=== PATIENT | female | born 1960 | race Caucasian/White ===

== ENCOUNTER 2017-03-20 23:12 | Inpatient (IN) | payer BC ==
--- NOTE | ~2017-03-20 | HP ---
History And Physical [address] [place]. [address] NAME: SAVANNAH GOMEZ : 60 STATUS : ADM IN PAT#: [id number] AGE: 56 ADM/REG DATE : 03/21/17 MR#: [id number] REPORT SERV DATE: 03/21/17 DICTATED BY: RU SULLIVAN DATE: 03/21/17 REPORT STATUS : Draft TRANSCRIBED BY: MODL DATE: 03/21/17 DATE OF ADMISSION: 03/21/2017 CHIEF COMPLAINT: Left knee pain and swelling. HISTORY: This is a 56-year-old female. Said she was moving, hit her knee against a box, got a foreign body in there about 48 to 72 hours ago. She has had progressive pain and swelling in the anterior knee and was admitted for evaluation and treatment of the same. She denies pain, injury, or evidence of illness elsewhere. ALLERGIES: CELEBREX. MEDICATIONS: See chart. PAST MEDICAL HISTORY: Denies. PAST SURGICAL HISTORY: Denies. SOCIAL HISTORY: She smokes, unclear how much, for how long. She reports being homeless. 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 FAMILY HISTORY: No known anesthetic complications. REVIEW OF SYSTEMS: As above. PHYSICAL EXAMINATION: GENERAL: She is alert and oriented x3, in no apparent distress. HEENT: Atraumatic, normocephalic. NECK: Supple. CHEST: Symmetric. LUNGS: Per Medicine evaluation. CV: Regular. ABDOMEN: Soft, no mass. EXTREMITIES: Both upper extremities, right lower extremity without acute trauma. Left knee with obvious pain and swelling over the anterior knee bursa. Skin is intact with severe erythema and severe pain with any range of motion. X-RAY: With a linear metallic-appearing density in the anterior midline of her knee. ASSESSMENT: Left knee foreign body, cellulitis, abscess, probable septic bursitis. PLAN: Left knee I and D, probable bursectomy and foreign body removal. Risks and benefits etc. explained. The patient wishes to proceed. History And Physical [address] [place]. [address] NAME: SAVANNAH GOMEZ : 60 STATUS : ADM IN PAT#: [id number] AGE: 56 ADM/REG DATE : 03/21/17 MR#: [id number] REPORT SERV DATE: 03/21/17 DICTATED BY: RU SULLIVAN DATE: 03/21/17 REPORT STATUS : Draft TRANSCRIBED BY: TRINA DATE: 03/21/17 WTB/TRINA Rodrigue Sullivan M.D. / [id number] CC: Jose Valdez M.D.
--- NOTE | ~2017-03-20 | OP ---
Record Of Operation [facility] [address] [place]. [address] NAME: SAVANNAH GOMEZ : 60 STATUS : ADM IN [facility]#: [id number] AGE: 56 ADM/REG DATE : 03/21/17 MR#: [id number] REPORT SERV DATE: 03/22/17 DICTATED BY: RU CANDELARIA DATE: 03/21/17 REPORT STATUS : Draft TRANSCRIBED BY: MODL DATE: 03/21/17 DATE OF PROCEDURE: 03/21/2017 PREOPERATIVE DIAGNOSIS: Left knee septic prepatellar bursa with foreign body. POSTOPERATIVE DIAGNOSIS: Left knee septic prepatellar bursa with foreign body (foreign body was a hypodermic needle). PROCEDURE: Left knee I and D septic bursa, removed hypodermic needle foreign body. SURGEON: Rodrigue Candelaria M.D. PATCH PRESS OPERATOR: See chart. DESCRIPTION OF PROCEDURE: The patient was taken to the operating room and placed supine on the table in normal fashion without incident. General anesthetic was induced per the anesthesiologist. The patient was carefully positioned, padded, prepped, and draped in normal sterile fashion. Sharp dissection was made through straight midline longitudinal incision and electrocautery to maintain hemostasis. Gross purulence was encountered and flowed out of the knee. We palpated and probed with looked for the foreign body, I could not find it and then discovered that it had flowed out with the pus on to the table and it was actually a hypodermic needle. The wound was copiously irrigated with pulsatile lavage, closed loosely over drain. Wound dressed sterilely. The patient awakened and taken to the postanesthesia care unit without incident. COMPLICATIONS: None. SPECIMENS: Cultures. ESTIMATED BLOOD LOSS: About 30 mL. WTB/MODL Rodrigue Candelaria M.D. / [id number] CC: Jose Valdez M.D.
--- NOTE | ~2017-03-20 | DS ---
Discharge Summary [facility] [address] [place]. [address] NAME: SAVANNAH GOMEZ : 60 STATUS : DIS IN PAT#: [id number] AGE: 56 ADM/REG DATE : 03/21/17 MR#: [id number] REPORT SERV DATE: 04/01/17 DICTATED BY: RU CANDELARIA DATE: 03/31/17 REPORT STATUS : Draft TRANSCRIBED BY: TRINA DATE: 03/31/17 Data Collection from hospitalization DISCHARGE DIAGNOSES: 1. Left knee septic prepatellar bursa with foreign body, foreign body with hypodermic needle. 2. Chronic obstructive pulmonary disease. 3. History of psychiatric disorder, she had mentioned bipolar disorder. CONSULTATIONS: Justin Fajardo M.D. PROCEDURES PERFORMED: Left knee I and D septic bursa, removed hypodermic needle foreign body on 03/21/2017. PATHOLOGY: Reports needle foreign body in left knee, see gross description. MEDICATIONS: Multivitamin one daily, Motrin IV 600 to 800 mg daily as needed, Tylenol 1000 to 1500 mg twice daily as needed, Sheila Aspirin 325 mg daily as needed, and Duricef 500 mg every 12 hours x9 days. CONDITION AT DISCHARGE: Upon discharge, she did appear to be doing well and had no complaints. DISPOSITION: She was discharged home to continue a regular diet with activity as discussed. She was to follow up with me in the office on 04/08/2017. She was also to [facility] [address] [place] [address] as directed. HOSPITAL COURSE: This 56-year-old female said she was moving, hit her knee against a box, got a foreign body in there about 48 to 72 hours prior to admission. She has had progressive pain and swelling in the anterior knee and was admitted for evaluation and treatment of the same. She denied any pain or injury or evidence of illness elsewhere. She was admitted for further evaluation. Upon admission to the hospital, she had been placed on an n.p.o. diet. She was begun on IV fluids with normal saline at 125 mL/hour. She had been placed on vancomycin 1 g IV every 12 hours, morphine 2 to 4 mg IV every two hours as needed, and Zofran 4 mg IV every four hours as needed for nausea. Following admission, she had been taken to the operating room where she did undergo the above procedure. She tolerated this well and was transferred to the recovery room. Postoperatively, she was seen by the Pharmacy for pharmacy consult in regard to her antibiotics and her antibiotics were adjusted. On postop day #1, she had been evaluated by Physical Therapy. She was afebrile and her vital signs were stable. She did appear to be doing well postoperatively. Her WBCs were at 10.9, hemoglobin 10.8, and hematocrit 33.2. Her blood culture revealed no growth at one day. Left knee culture had revealed occasional gram-positive cocci and rare gram- positive bacilli and the culture was still in progress. On postop day #2, she continued to do well and had no new complaints. She did state that she lives at [facility]. Her WBCs were down to 6.2, hemoglobin 11.6, and hematocrit 35.4. INR 1.2. She had been evaluated by Dr. Justin Fajardo in regard to her knee infection with his impression being that she had left knee staphylococcal septic prepatellar bursitis and she did state that she did not know the origin of the needle that was found in her knee and that it was maybe related Discharge Summary [address] [address] NAME: SAVANNAH GOMEZ : 60 STATUS : DIS IN PAT#: [id number] AGE: 56 ADM/REG DATE : 03/21/17 MR#: [id number] REPORT SERV DATE: 04/01/17 DICTATED BY: RU CANDELARIA DATE: 03/31/17 REPORT STATUS : Draft TRANSCRIBED BY: MODL DATE: 03/31/17 [facility]. She did state that she had a tetanus shot three years ago. She was continued on vancomycin. Dr. Fajardo also recommended screening for HIV and viral hepatitis since we did not know if this needle was used, and if she tested negative, she would need to follow up screening for both in about three months where she became symptomatic. He did also state that she needed to resume treatment for her bipolar disorder and maybe other psychiatric illness. He did also recommend vaccinations beginning with Prevnar and she did agree with this. He did also state that she would need a Pneumovax in about a year and this had also been discussed with the patient. On 03/24/2017, she continued to do well and she did state that she had been up walking on her own. Her temperature had been up to 99.1 and her vital signs had remained stable. She was continued on supportive care and had no new complaints noted. Her final operative culture had revealed a growth of MSSA and Dr. Fajardo recommended she be discharged on cefadroxil 1 g every 12 hours, then to follow up in the [facility]. She did remain in stable condition, and as she continued to do well, she was then discharged with the above instructions. Information collected by: Stephen Lisa. I submit the above information as my discharge summary. FARHANA/MODL Rodrigue Candelaria M.D. / [id number] CC: Geovanna Oneal M.D.
--- NOTE | ~2017-03-20 | CN ---
Consultation Report [facility] [address] [place]. [address] NAME: SAVANNAH GOMEZ : 60 STATUS : ADM IN PAT#: [id number] AGE: 56 ADM/REG DATE : 03/21/17 MR#: [id number] REPORT SERV DATE: 03/23/17 DICTATED BY: JUSTIN FONTENOT DATE: 03/23/17 REPORT STATUS : Draft TRANSCRIBED BY: MODMoreno DATE: 03/23/17 INFECTIOUS DISEASE CONSULTATION DATE OF CONSULTATION: REASON FOR CONSULT: Knee infection. HISTORY OF PRESENT ILLNESS: A 56-year-old homeless lady with a history of psychiatric illness (bipolar disorder and maybe others) who presented to the hospital with left swollen knee. This happened about two days prior to the admission. She thinks that she hit her knee with a box that she picked up in a homeless encampment. She does not know if she had any fever. In the ER, they described redness of the anterior left knee. She was started on vancomycin. She was admitted and Dr. Sullivan did an I and D and describes gross purulence in the prepatellar bursa. He found a needle or fragments of a needle. She got Ancef and vancomycin at the surgery time, then continued with vancomycin alone. The operative culture now is growing staphylococci species. The Gram stain had gram-positive cocci and gram- positive rods. ID consult requested today. She has been afebrile. She is able to walk. In fact, she states she walked for an hour yesterday. LABORATORY WORK: Creatinine 0.7. WBC 6 and hemoglobin 11. PAST MEDICAL HISTORY: Psychiatric disorder for which she used to go to [facility], but she has not been there in a while. She mentioned bipolar disorder. She has a lot of scars over her arms from scratching and picking on her skin. 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 SOCIAL HISTORY: She is homeless. She is on disability, so she has access to medical care. She has been in the room with a male who states that they do not "use needles." ALLERGIES: JUST MENTIONED THAT THE CELEBREX CAUSED HER HAIR TO FALL. MEDICATIONS: On her admission according to the chart, just p.r.n. aspirin and ibuprofen, and takes multivitamins. PHYSICAL EXAMINATION: GENERAL: She is alert, awake, and talkative. She has poor dentition. LUNGS: Clear to auscultation. HEART: Regular rhythm. 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 Left knee with some swelling, has a surgical dressing. Right knee without signs of excoriations or trauma to the prepatellar area. Feet without open wounds. Left hip without erythema. Consultation Report [address] [place]. [address] NAME: SAVANNAH GOMEZ : 60 STATUS : ADM IN PAT#: [id number] AGE: 56 ADM/REG DATE : 03/21/17 MR#: [id number] REPORT SERV DATE: 03/23/17 DICTATED BY: JUSTIN FONTENOT DATE: 03/23/17 REPORT STATUS : Draft TRANSCRIBED BY: TRINA DATE: 03/23/17 ASSESSMENT AND PLAN: 1. Left knee staphylococcal septic prepatellar bursitis, status post surgical debridement two days ago. The needle was found in the pocket at the surgery time. She does not know the origin of this needle. It was maybe related to this homeless encampment. She had a tetanus shot three years ago. Blood cultures are negative. Continue vancomycin. Pending abscess culture. I recommended screening for HIV and viral hepatitis since we do not know if this needle was used. If the tests are negative, she would need to follow up screening for both in about three months or if symptomatic. 2. Bipolar disorder and maybe other psychiatric illness. She needs to resume treatment. 3. I recommended vaccinations starting with Prevnar. She agreed. She will need Pneumovax in about a year. I discussed with the patient. She had the opportunity to ask questions. [place]/TRINA Justin Fontenot M.D. / [id number] CC: Rodrigue Sullivan M.D. NO PCP
[2017-03-21 00:34] LABS: BASOPHILS 0.3 %; BASOPHILS ABSOLUTE 0.03 10/3/uL (0.0-0.16); EOSINOPHILS 1.5 %; EOSINOPHILS ABSOLUTE 0.16 10/3/uL (0.0-0.53); HEMATOCRIT 38.4 % (36.0-48.0); HEMOGLOBIN 13.1 g/dL (12.0-16.0); IMMATURE GRANULOCYTES 0.3 %; IMMATURE GRANULOCYTES ABSOLUTE 0.03 10/3/uL (0.0-0.11); LYMPHOCYTES 27.7 %; LYMPHOCYTES ABSOLUTE 3.01 10/3/uL (0.67-4.30); MEAN CORPUS HGB CONC 34.1 g/dL (32.0-36.0); MEAN CORPUSCULAR HEMOGLOB 32.3 pg (26.0-34.0); MEAN CORPUSCULAR VOLUME 94.6 fL (80-100); MEAN PLATELET VOLUME 9.6 fL (9.2-13.0); MONOCYTES 5.4 %; MONOCYTES ABSOLUTE 0.59 10/3/uL (0.21-1.20); NEUTROPHILS 64.8 %; NEUTROPHILS ABSOLUTE 7.04 10/3/uL (2.02-8.40); PLATELET COUNT 247 10/3/uL (150-400); RBC DISTRIBUTION WIDTH 12.2 % (12.0-16.0); RED CELL COUNT 4.06 10/6/uL (4.0-5.6)
[2017-03-21 00:35] LABS: ER CBC TAT 0 Hrs 05 Mins; MANUAL DIFF NO %; WHITE BLOOD CELLS 10.9 10/3/uL (4.5-10.5)
[2017-03-21 00:47] LABS: BUN (BLOOD UREA NITROGEN) 21 MG/DL (6-23); CALCIUM, SERUM 8.9 MG/DL (8.5-10.4); CHLORIDE, SERUM 103 MMOL/L (96-112); CO2 (CARBON DIOXIDE) 30 MMOL/L (24-34); CREATININE 0.91 MG/DL (0.55-1.02); GFR AFRICAN AMERICAN 82 ML/MIN (>=60); GFR NON AFRICAN AMERICAN 71 ML/MIN (>=60); GLUCOSE, SERUM 104 MG/DL (60-99); POTASSIUM, SERUM 3.8 MMOL/L (3.5-5.3); SODIUM, SERUM 140 MMOL/L (135-148)
[2017-03-21] MEDS ORDERED: UNKNOWN ABX PO (01:41)
[2017-03-21] MEDS ORDERED: MOTRIN IB200 MG PO (01:42)
[2017-03-21] MEDS ORDERED: MULTIVIT/MIN PO (01:43)
[2017-03-21] MEDS ORDERED: ACET500CAP PO (01:43)
[2017-03-21] MEDS ORDERED: ASABAYER PO (01:43)
[2017-03-21 23:00] LABS: INTERNATIONAL NORMAL RATI 1.2 UNITS (-); PROTIME (NOT ORD) 15.3 SEC (12.0-14.5)
[2017-03-22 07:10] LABS: HEMATOCRIT 33.2 % (36.0-48.0); HEMOGLOBIN 10.8 g/dL (12.0-16.0)
[2017-03-22 07:18] LABS: BUN (BLOOD UREA NITROGEN) 19 MG/DL (6-23); CALCIUM, SERUM 8.3 MG/DL (8.5-10.4); CHLORIDE, SERUM 107 MMOL/L (96-112); CO2 (CARBON DIOXIDE) 26 MMOL/L (24-34); CREATININE 0.84 MG/DL (0.55-1.02); GFR AFRICAN AMERICAN 90 ML/MIN (>=60); GFR NON AFRICAN AMERICAN 78 ML/MIN (>=60); GLUCOSE, SERUM 157 MG/DL (60-99); POTASSIUM, SERUM 4.6 MMOL/L (3.5-5.3); SODIUM, SERUM 140 MMOL/L (135-148)
[2017-03-22 07:23] LABS: INTERNATIONAL NORMAL RATI 1.3 UNITS (-); PROTIME (NOT ORD) 16.3 SEC (12.0-14.5)
[2017-03-23 06:06] LABS: BASOPHILS 0.5 %; BASOPHILS ABSOLUTE 0.03 10/3/uL (0.0-0.16); EOSINOPHILS 2.3 %; EOSINOPHILS ABSOLUTE 0.14 10/3/uL (0.0-0.53); HEMATOCRIT 35.4 % (36.0-48.0); HEMOGLOBIN 11.6 g/dL (12.0-16.0); IMMATURE GRANULOCYTES 0.2 %; IMMATURE GRANULOCYTES ABSOLUTE 0.01 10/3/uL (0.0-0.11); LYMPHOCYTES ABSOLUTE 2.22 10/3/uL (0.67-4.30); MEAN CORPUS HGB CONC 32.8 g/dL (32.0-36.0); MEAN CORPUSCULAR VOLUME 94.7 fL (80-100); MEAN PLATELET VOLUME 9.6 fL (9.2-13.0); MONOCYTES 7.8 %; MONOCYTES ABSOLUTE 0.48 10/3/uL (0.21-1.20); NEUTROPHILS 53.2 %; NEUTROPHILS ABSOLUTE 3.29 10/3/uL (2.02-8.40); PLATELET COUNT 267 10/3/uL (150-400); RBC DISTRIBUTION WIDTH 12.4 % (12.0-16.0); RED CELL COUNT 3.74 10/6/uL (4.0-5.6)
[2017-03-23 06:08] LABS: MANUAL DIFF NO %; WHITE BLOOD CELLS 6.2 10/3/uL (4.5-10.5)
[2017-03-23 06:12] LABS: INTERNATIONAL NORMAL RATI 1.2 UNITS (-); PROTIME (NOT ORD) 14.7 SEC (12.0-14.5)
[2017-03-23 06:18] LABS: BUN (BLOOD UREA NITROGEN) 19 MG/DL (6-23); CALCIUM, SERUM 8.1 MG/DL (8.5-10.4); CHLORIDE, SERUM 111 MMOL/L (96-112); CO2 (CARBON DIOXIDE) 27 MMOL/L (24-34); CREATININE 0.79 MG/DL (0.55-1.02); GFR AFRICAN AMERICAN 97 ML/MIN (>=60); GFR NON AFRICAN AMERICAN 84 ML/MIN (>=60); POTASSIUM, SERUM 4.3 MMOL/L (3.5-5.3); SODIUM, SERUM 144 MMOL/L (135-148)
[2017-03-23 06:21] LABS: GLUCOSE, SERUM 107 MG/DL (60-99)
[2017-03-23 15:41] LABS: ALBUMIN 3.1 G/DL (3.5-5.0); ALKALINE PHOSPHATASE 90 U/L (45-117); SGPT(ALT) 25 U/L (5-65); TOTAL BILIRUBIN 0.2 MG/DL (0-1.2)
[2017-03-23 15:50] LABS: DIRECT BILIRUBIN < 0.1 MG/DL (0.0-0.4); INDIRECT BILIRUBIN(NOT ORDER) 0.1 MG/DL (0.1-0.9); SGOT(AST) 34 U/L (5-40)
[2017-03-24 07:52] LABS: HEMATOCRIT 36.8 % (36.0-48.0); HEMOGLOBIN 12.4 g/dL (12.0-16.0); MEAN CORPUS HGB CONC 33.7 g/dL (32.0-36.0); MEAN CORPUSCULAR HEMOGLOB 31.9 pg (26.0-34.0); MEAN CORPUSCULAR VOLUME 94.6 fL (80-100); MEAN PLATELET VOLUME 9.6 fL (9.2-13.0); PLATELET COUNT 327 10/3/uL (150-400); RBC DISTRIBUTION WIDTH 12.3 % (12.0-16.0); RED CELL COUNT 3.89 10/6/uL (4.0-5.6); WHITE BLOOD CELLS 5.4 10/3/uL (4.5-10.5)
[2017-03-24 07:56] LABS: MANUAL DIFF YES %
[2017-03-24 07:59] LABS: INTERNATIONAL NORMAL RATI 1.1 UNITS (-); PROTIME (NOT ORD) 13.9 SEC (12.0-14.5)
[2017-03-24 08:09] LABS: BAND NEUTROPHILS 5 %; EOSINOPHILS 4 %; EOSINOPHILS ABSOLUTE (CALC) 0.22 10/3/uL (0.0-0.53); LYMPHOCYTES 45 %; LYMPHOCYTES ABSOLUTE (CALC) 2.43 10/3/uL (0.67-4.30); MONOCYTES 9 %; MONOCYTES ABSOLUTE (CALC) 0.49 10/3/uL (0.21-1.20); NEUTROPHILS ABSOLUTE (CALC) 2.27 10/3/uL (2.02-8.40); SEGMENTED NEUTROPHIL (0) 37 %; TOTAL NUCLEATED CELLS 100
[2017-03-24 08:10] LABS: PLATELET ESTIMATE ADQ (ADEQUATE); RBC MORPHOLOGY NORM (NORMAL)
[2017-03-25 09:10] LABS: INTERNATIONAL NORMAL RATI 1.1 UNITS (-); PROTIME (NOT ORD) 14.2 SEC (12.0-14.5)
[2017-03-25 10:35] LABS: HEPATITIS B CORE AB IGM NON-REACTIVE (NON-REAC)
[2017-03-25 10:36] LABS: HEP A ANTIBODY IGM NON-REACTIVE (NON-REACT)
[2017-03-25 10:39] LABS: HEPATITIS B SURFACE ANTIGEN NON-REACTIVE (NON-REACT)
[2017-03-25 12:03] LABS: HEPATITIS C ANTIBODY REACTIVE (NON-REACT)
[2017-03-25] MEDS ORDERED: DURICEF PO (16:52)
== END 2017-03-25 20:47 | disposition home or self-care (01) | DRG 488 ==
LOC: ER 23:12 → 1SO 03-21 01:15
PROVIDERS: Internal Medicine Infectious Disease; Nurse Practitioner Acute Care; Specialist
PROC: 0S9D00Z Drainage of Left Knee Joint with Drainage Device, Open Approach (ICD-10-PCS; principal; 2017-03-21 18:15)
DX: M71.162 Other infective bursitis, left knee (principal); L03.116 Cellulitis of left lower limb; S81.042A Puncture wound with foreign body, left knee, initial encounter; L02.416 Cutaneous abscess of left lower limb; W46.0XXA Contact with hypodermic needle, initial encounter; F31.9 Bipolar disorder, unspecified; Z79.82 Long term (current) use of aspirin; Z79.899 Other long term (current) drug therapy; Z23 Encounter for immunization; Z59.0 Homelessness; Z88.8 Allergy status to other drugs, medicaments and biological substances
CPT/HCPCS: 73560-LT; 76000; 80048; 80074; 80076; 80202; 85014; 85018; 85025; 85610; 87015; 87040; 87070; 87075; 87077; 87102; 87116; 87186; 87205; 87389; 88300; 90670; 97110-GP; 97116-GP; 97161-GP; 97165-GO; 99284; A9270-GY; G0009; J0690; J2250; J2270; J2370; J2405; J3010; J3370